=== PATIENT | male | born 1975 | race Hispanic/Latino ===

== ENCOUNTER 2017-06-29 02:40 | Inpatient (IN) | payer MEDICAID ==
--- NOTE | 2017-06-29 04:43 | PCM.BM ---
<David Leiva - Last Filed: 06/29/17 04:42> Treatment Plan Problems - Problems identified on initial assessmt Depression Date Initiated: 06/29/17 Time Initiated: 03:30 Assessment reference: NA Status: Active Suicidal Ideation Date Initiated: 06/29/17 Time Initiated: 03:30 Assessment reference: NA Status: Active Treatment assets and liabiliti Patient Assests: adapts well, cooperative, self-reliant, ADL independent, negotiates basic needs Patient Liabilities: live alone, financial problems, poor support system, relationship conflicts, dietary restrictions, medical problems - Milieu Protocol Maintain good personal hygiene: daily Encourage regular showers, daily Remind patient to perform daily oral care, daily Assist patient to perform ADL's Maintain personal safety: every shift Educate patient to report safety concerns to staff, every shift Monitor environment for contraband/sharps Medication safety: Monitor for expected outcome, potential side effects: every shift, Assess barriers to learning: every shift, Assess readiness for medication education: every shift <Walker Luevano - Last Filed: 06/29/17 23:52> - Diagnosis (1) Depression with suicidal ideation Status: Acute Interventions: 06/29/17 23:52 * Assess/adjust medications daily and /or as needed * See patient on an individual basis 7x/week to assess symptoms of depression * Monitor for side effects & effectiveness of medications *
--- NOTE | 2017-06-29 05:45 | C.PDOC ---
History Of Present Illness 41 year old male presents to the ER as a transfer from [facility] for psych admission for depression and suicidal ideation. Denies physical complaints at this time. Chief Complaint (Nursing): Psychiatric Evaluation History Per: Patient History/Exam Limitations: no limitations Onset/Duration Of Symptoms: Days Current Symptoms Are (Timing): Gone Suicide/Self Injury Attempted (Context): None Associated Symptoms: Depression, Suicidal Thoughts. denies: Suicidal Plan Involuntary Hold By: None Recent travel outside of the [place]: No Past Medical History Reviewed: Historical Data, Nursing Documentation, Vital Signs Vital Signs: Last Vital Signs Temp 98 F 06/29/17 02:50 Pulse 86 06/29/17 02:50 Resp 16 06/29/17 02:50 BP 152/72 H 06/29/17 02:50 Pulse Ox 98 06/29/17 05:47 - Medical History PMH: Depression, HTN Surgical History: Coronary Stent Family History: States: Unknown Family Hx - Social History Hx Alcohol Use: No Hx Substance Use: No - Immunization History Hx Tetanus Toxoid Vaccination: No Hx Influenza Vaccination: No Hx Pneumococcal Vaccination: No Review Of Systems Constitutional: Negative for: Fever, Chills Cardiovascular: Negative for: Chest Pain Respiratory: Negative for: Shortness of Breath Gastrointestinal: Negative for: Nausea, Vomiting, Abdominal Pain Physical Exam - Physical Exam Appears: Non-toxic, No Acute Distress Skin: Normal Color, Warm, Dry Head: Atraumatic, Normacephalic Eye(s): bilateral: Normal Inspection Oral Mucosa: Moist Neck: Normal, Supple Chest: Symmetrical, No Tenderness Cardiovascular: Rhythm Regular Respiratory: Normal Breath Sounds, No Rales, No Rhonchi, No Wheezing Gastrointestinal/Abdominal: Soft, No Tenderness Neurological/Psych: Oriented x3, Normal Speech ED Course And Treatment O2 Sat by Pulse Oximetry: 98 (room air) Pulse Ox Interpretation: Normal Progress Note: Patient cleared for admission. Disposition - Disposition Disposition: HOSPITALIZED Disposition Time: 02:50 Condition: STABLE - Clinical Impression Clinical Impression: Depression - Scribe Statement The provider has reviewed the documentation as recorded by the Scribshelly Newberry All medical record entries made by the Scribe were at my direction and personally dictated by me. I have reviewed the chart and agree that the record accurately reflects my personal performance of the history, physical exam, medical decision making, and the department course for this patient. I have also personally directed, reviewed, and agree with the discharge instructions and disposition.
--- NOTE | 2017-06-29 10:41 | PCM.PSYCH ---
Initial Psychiatric Evaluation - Initial Psychiatric Evaluation Type of Admission: Voluntary Legal Status: Capacity Chief Complaint (in patient's own words): "I am not comfortable at this hospital, I want to go to [facility]." History of Present Illness and Precipitating Events: Pt was seen, chart reviewed, case discussed with staff. Pt is a 41y/o male who is single with no children and lives with his uncle. He is here for depression and suicidal ideations. Pt is extremely agitated and irritable during the interview. He does not appear disheveled. Pt is cooperative. He is unemployed. Pt demands throughout the interview to be discharged today so he can go to [facility] where he states more comfortable. He states that he is not comfortable at [facility] and threatens to speak with administration if not discharged and get [employer] involved. He has a history of psychiatric hospitalization at [facility]. His psychiatrist at the hospital is Dr. Sosa. Pt has a history of Bipolar II, PTSD, and depression. He was recently hospitalized at [facility] couple of weeks ago for depression and suicidal ideations. He reports feelings of hopelessness and anxiety. He denies homicidal ideations, paranoia, auditory hallucinations, and visual hallucinations. Pt denies alcohol, illicit drug, and cigarette use. PMHX: CAD s/p Stent, DM 2, HTN Psychiatric HX: Bipolar 2, PTSD Current Medications: Active Medications Generic Name Dose Route Start Last Admin Trade Name Freq PRN Reason Stop Dose Admin Pneumococcal Polyvalent Vaccine 0.5 ml 07/01/17 10:30 Pneumovax 23 Vaccine IM 07/01/17 10:31 .ONCE ONE Past Psychiatric History - Past Psychiatric History Previous Treatment History: Inpatient Pertinent Medical Hx (Current Medical&Sleep Prob, Allergies): Allergies Allergy/AdvReac Type Severity Reaction Status Date / Time clarithromycin [From Biaxin] Allergy Verified 06/29/17 02:58 codeine Allergy Verified 06/29/17 02:58 sulfur dioxide Allergy Verified 06/29/17 02:58 Metoprolol Tartrate [Lopressor] 25 mg PO DAILY 06/29/17 Metoprolol Tartrate [Lopressor] 100 mg PO DAILY 06/29/17 Mirtazapine [Remeron] 30 mg PO DAILY 06/29/17 Quetiapine Fumarate [Quetiapine Fumarate ER] 200 mg PO DAILY 06/29/17 Tamsulosin HCl [Flomax] 0.4 mg PO DAILY 06/29/17 Trazodone HCl 100 mg PO DAILY 06/29/17 metFORMIN [glucOPHAGE] 850 mg PO DAILY 06/29/17 Review of Systems - Review of Systems All systems: reviewed and no additional remarkable complaints except - Psychiatric Psychiatric: Abnormal Sleep Pattern, Anxiety, Depression, Hopelessness, Irritability, Suicidal Ideation Mental Status Examination - Personal Presentation Personal Presentation: Looks stated age - Affect Affect: Broad, Depressed - Motor Activity Motor Activity: Psychomotor Agitation - Reliability in Providing Information Reliability in Providing Information: Good - Mood Mood: Depressed, Anxious - Formal Thought Process Formal Thought Process: No Impairment - Obsessions/Compulsions Obsessions: No Compulsions: No - Cognitive Functions Orientation: Person, Place, Situation, Time Sensorium: Alert Attention/Concentration: Attentive Abstract Thinking: Forest Estimate of Intelligence: Below average Judgement: Imparied, as evidence by: Poor judgement, Imparied, as evidence by: Lack of insight into illness - Risk Risk: Suicidal, Diminished functioning - Limitations Limitations: Living alone DSM 5 DX - DSM 5 DSM 5 Diagnosis: Bipolar II Major depressive disorder recurrent severe without psychotic features - Recommended/Plan of Treatment Treatment Recommendations and Plan of Treatment: Severe bipolar II depressed without psychotic features PTSD Chronic CBT Psychoeducation Supportive therapy, group therapy, individual therapy Neurontin 400 mg by mouth 3 times a day Trazodone 100 mg by mouth daily at bedtime Seroquel 100 mb PO Daily Seroquel 300 mg PO QHS Mirtazapine 45 mg pO QHS DM Continue prescribed meds Monitor with blood sugar HTN Continue prescribed meds Monitor with blood sugar CAD s/p Stent Continue prescribed meds Monitor with blood sugar - Smoking Cessation Smoking Cessation Initiated: No
[2017-06-29] MEDS ORDERED: diltiaZEM 120 mg/24 Hours CD Cap PO SCH (13:00)
--- NOTE | 2017-06-29 14:05 | CP.PCM.CON ---
<Austin Azul - Last Filed: 06/29/17 17:27> History of Present Illness - History of Present Illness History of Present Illness: CC: I don't feel well Mr Bonilla is a 41 year old male with a who is currently in the psychiatric unit for depression and suicidal ideation. He has a past medical history of DM (with insulin pump), HTN, CAD (with stent placement in 01/2017), urethral stricture. He stated [place] the [place] with [place] uncle yesterday and began having palpitations and became dizzy and uttered "I want to kill myself" which he states was overheard by a passerby who alerted security and ultimately he was taken to the [facility] ED. He wanted to be taken to [facility] psych unit (as he has had previous visits there) but [facility] didn't have any empty beds, thus he was brought to [facility] ER. He currently endorses palpitations, body aches, abdominal cramps and right ankle swelling. He denies chest pain, shortness of breath, focal deficits, dizziness, fever, diarrhea, nausea or vomiting. PMD: Dr Avila (sp?) in [place], [place] Cost Manager: Dr Kwon PMHx: DM, HTN, CAD, Urethral stricture (diagnosed 2016), Right ankle fracture 2012 PSHx: Coronary stent placement 01/2017, Right ankle fracture repair 2012 Allergies: Clarithromycin - rash; Codeine - dyspnea; Sulfure dioxide - dyspnea Home Meds: Insulin pump - closed loop system Lisinopril 40mg PO QD Plavix 75mg PO QD Lipitor 80mg PO QD Flomax 0.4mg PO BID Metoprolol tartrate 100mg PO BID Aspirin 81mg PO QD Metformin 1000 PO BID Pepcid 20mg PO BID Seroquel 100mg PO AM and Afternoon; Seroquel 200mg PO HS Rameron 45mg PO HS Gabapentin 400mg PO TID Trazadone 100mg PO HS Social Hx: denies tobacco use; social etoh use; denies illicit drug use; currently lives [place] with uncle; unemployed FamHx: Mother - at age 64 from cardiac isses, hx of AFib; Estranged from Father and Brother Review of Systems - Constitutional Constitutional: Fatigue, Weakness. absent: Night Sweats - EENT Eyes: absent: Change in Vision Ears: absent: Decreased Hearing Nose/Mouth/Throat: Nasal Congestion - Cardiovascular Cardiovascular: Claudication, Lightheadedness, Palpitations, Rapid Heart Rate. absent: Chest Pain, Diaphoresis, Edema - Respiratory Respiratory: absent: Cough, Dyspnea, Wheezing - Gastrointestinal Gastrointestinal: Bloating, Cramping. absent: Abdominal Pain - Genitourinary Genitourinary: Difficulty Urinating. absent: Dysuria - Musculoskeletal Musculoskeletal: Arthralgias - Integumentary Integumentary: absent: Bleeding Lesions - Neurological Neurological: Dizziness Past Patient History - Past Social History Smoking Status: Former Smoker - CARDIAC Hx Hypertension: Yes - PULMONARY Hx Respiratory Disorders: No - NEUROLOGICAL Hx Neurological Disorder: No - HEENT Hx HEENT Problems: No - RENAL Hx Chronic Kidney Disease: No - ENDOCRINE/METABOLIC Hx Endocrine Disorders: Yes Hx Diabetes Mellitus Type 1: Yes (insulin pump) - HEMATOLOGICAL/ONCOLOGICAL Hx Blood Disorders: No - INTEGUMENTARY Hx Dermatological Problems: No - MUSCULOSKELETAL/RHEUMATOLOGICAL Hx Musculoskeletal Disorders: No - GASTROINTESTINAL Hx Gastroesophageal Reflux: Yes - GENITOURINARY/GYNECOLOGICAL Hx Genitourinary Disorders: No - PSYCHIATRIC Hx Substance Use: No - SURGICAL HISTORY Hx Coronary Stent: Yes - ANESTHESIA Hx Anesthesia: Yes Hx Anesthesia Reactions: No Hx Malignant Hyperthermia: No Meds Allergies/Adverse Reactions: Allergies Allergy/AdvReac Type Severity Reaction Status Date / Time clarithromycin [From Biaxin] Allergy Verified 06/29/17 02:58 codeine Allergy Verified 06/29/17 02:58 sulfur dioxide Allergy Verified 06/29/17 02:58 - Medications Medications: Current Medications Diltiazem HCl (Cardizem Cd) 120 mg PO DAILY [facility] Last Admin: 06/29/17 13:01 Dose: 120 mg Famotidine (Pepcid) 20 mg PO DAILY [facility] Gabapentin (Neurontin) 400 mg PO TID [facility] Last Admin: 06/29/17 13:01 Dose: 400 mg Insulin Aspart (Novolog) 0 unit SC [facility] PRN Reason: Protocol Insulin Glargine (Lantus) 65 unit SC HS [facility] Lisinopril (Zestril) 40 mg PO DAILY [facility] Last Admin: 06/29/17 13:01 Dose: 40 mg Metformin HCl (Glucophage) 1,000 mg PO BID [facility] Metoprolol Tartrate (Lopressor) 100 mg PO BID [facility] Mirtazapine (Remeron) 45 mg PO HS [facility] Pneumococcal Polyvalent Vaccine (Pneumovax 23 Vaccine) 0.5 ml IM .ONCE ONE Stop: 07/01/17 10:31 Quetiapine Fumarate (Seroquel) 100 mg PO BID [facility] Quetiapine Fumarate (Seroquel) 200 mg PO HS [facility] Rosuvastatin Calcium (Crestor) 20 mg PO HS [facility] Tamsulosin HCl (Flomax) 0.4 mg PO DAILY [facility] Trazodone HCl (Desyrel) 100 mg PO HS [facility] Physical Exam - Constitutional Appears: Well, No Acute Distress, Older Than Stated Age - Head Exam Head Exam: ATRAUMATIC, NORMAL INSPECTION - Eye Exam Eye Exam: EOMI Pupil Exam: PERRL - ENT Exam ENT Exam: Mucous Membranes Moist - Neck Exam Neck exam: Positive for: Normal Inspection. Negative for: Lymphadenopathy, Tenderness - Respiratory Exam Respiratory Exam: Clear to Auscultation Bilateral, NORMAL BREATHING PATTERN. absent: Rales, Rhonchi, Wheezes - Cardiovascular Exam Cardiovascular Exam: Tachycardia, REGULAR RHYTHM, +S1, +S2. absent: Irregular Rhythm, JVD, Systolic Murmur - GI/Abdominal Exam GI & Abdominal Exam: Normal Bowel Sounds, Soft. absent: Distended, Firm, Guarding, Hernia, Mass, Rebound, Tenderness - Extremities Exam Extremities exam: Positive for: full ROM, normal capillary refill, pedal edema, pedal pulses present. Negative for: calf tenderness Additional comments: 1+ pedal edema bilaterally - Neurological Exam Neurological exam: Alert, Normal Gait, Oriented x3 - Psychiatric Exam Psychiatric exam: Anxious, Suicidal Ideation - Skin Skin Exam: Intact, Normal Color, Warm Results - Vital Signs Recent Vital Signs: Last Vital Signs Temp 98 F 06/29/17 02:50 Pulse 86 06/29/17 02:50 Resp 16 06/29/17 02:50 BP 152/72 H 06/29/17 02:50 Pulse Ox 98 06/29/17 06:18 - Labs Result Diagrams: 06/29/17 14:00 06/29/17 14:00 Labs: Laboratory Results - last 24 hr 06/29/17 06/29/17 06/29/17 02:48 08:03 12:00 POC Glucose (mg/dL) 95 99 161 H Assessment & Plan (1) Diabetes mellitus Assessment and Plan: Management Trainee consult, Dr Bree Whaley HgA1C 06/29: 10.0 F/U TSH, T4, fasting lipid panel Hypoglycemia protocol Meds: Continue insulin pump (patient's own) Metformin 1000mg PO BID Rosuvastatin 40mg PO HS Lisinopril 40mg PO QD Status: Chronic Priority: High (2) Hypertension Assessment and Plan: Metoprolol tartrate 100mg PO BID Lisinopril 40mg PO QD Status: Chronic Priority: High (3) CAD (coronary artery disease) Assessment and Plan: w/ stent placed in 01/2017 Will discuss with pt's foot orthopedist, Dr Kwon and obtain cardiac hx such as date and results of last ECHO Plavix 75mg PO QD Crestor 40mg PO HS Metoprolol 100mg PO BID Aspirin 81mg PO QD Status: Chronic Priority: High (4) Urethral stricture Assessment and Plan: Flomax 0.4mg PO BID Status: Chronic Priority: Medium (5) Abnormal RBC indices Assessment and Plan: F/U Iron, TIBC, % saturation, Ferritin Status: Acute Priority: Medium (6) Diabetic neuropathy Assessment and Plan: Gabapentin 400mg PO TID Status: Chronic Priority: Medium (7) GERD (gastroesophageal reflux disease) Assessment and Plan: Pepcid 20mg PO BID Status: Chronic Priority: Low (8) Depression with suicidal ideation Assessment and Plan: Management as per psychiatry team Status: Acute Priority: High <Charan White - Last Filed: 06/30/17 19:00> Meds - Medications Medications: Current Medications Acetaminophen (Tylenol 325mg Tab) 650 mg PO Q8H PRN PRN Reason: Pain, severe (8-10) Last Admin: 06/29/17 23:07 Dose: 650 mg Aspirin (Aspirin Chewable) 81 mg PO DAILY [facility] Last Admin: 06/30/17 09:59 Dose: 81 mg Benztropine Mesylate (Cogentin) 1 mg PO BID [facility] Last Admin: 06/30/17 17:33 Dose: 1 mg Benztropine Mesylate (Cogentin) 2 mg PO Q6 PRN PRN Reason: EPS Clopidogrel Bisulfate (Plavix) 75 mg PO DAILY [facility] Last Admin: 06/30/17 09:59 Dose: 75 mg Dextrose (Dextrose 50% Inj) 0 ml IV STAT PRN; Protocol PRN Reason: Hypoglycemia Protocol Dextrose (Glutose 15) 0 gm PO ONCE PRN; Protocol PRN Reason: Hypoglycemia Protocol Diltiazem HCl (Cardizem Cd) 120 mg PO DAILY [facility] Last Admin: 06/30/17 10:00 Dose: 120 mg Famotidine (Pepcid) 20 mg PO BID [facility] Last Admin: 06/30/17 17:33 Dose: 20 mg Ferrous Sulfate (Feosol) 325 mg PO BID [facility] Last Admin: 06/30/17 17:56 Dose: 325 mg Gabapentin (Neurontin) 400 mg PO TID [facility] Last Admin: 06/30/17 17:33 Dose: 400 mg Glucagon (Glucagen Diagnostic Kit) 0 mg IM STAT PRN; Protocol PRN Reason: Hypoglycemia Protocol Home Med (Home Med) 0 unit SC Q3D [facility] Last Admin: 06/30/17 10:04 Dose: 2 unit Dextrose (Dextrose 5% In Water 1000 Ml) 1,000 mls @ 0 mls/hr IV .Q0M PRN; Protocol; Per Protocol PRN Reason: Hypoglycemia Protocol Lisinopril (Zestril) 40 mg PO DAILY [facility] Last Admin: 06/30/17 10:03 Dose: 40 mg Magnesium Oxide (Mag-Ox) 400 mg PO TID [facility] Metformin HCl (Glucophage) 1,000 mg PO BID [facility] Last Admin: 06/30/17 17:33 Dose: 1,000 mg Metoprolol Tartrate (Lopressor) 100 mg PO BID [facility] Last Admin: 06/30/17 17:56 Dose: 100 mg Mirtazapine (Remeron) [address] [facility] Last Admin: 06/29/17 21:25 Dose: 45 mg Pneumococcal Polyvalent Vaccine (Pneumovax 23 Vaccine) 0.5 ml IM .ONCE ONE Stop: 07/01/17 10:31 Quetiapine Fumarate (Seroquel) 100 mg PO BID [facility] Last Admin: 06/30/17 17:33 Dose: 100 mg Quetiapine Fumarate (Seroquel) [address] [facility] Last Admin: 06/29/17 21:25 Dose: 200 mg Rosuvastatin Calcium (Crestor) [address] [facility] Last Admin: 06/29/17 21:25 Dose: 40 mg Tamsulosin HCl (Flomax) 0.4 mg PO BID [facility] Last Admin: 06/30/17 17:56 Dose: 0.4 mg Trazodone HCl (Desyrel) [address] [facility] Last Admin: 06/29/17 21:26 Dose: 100 mg Trolamine Salicylate (Aspercreme) 0 gm TOP QID [facility] Last Admin: 06/30/17 17:56 Dose: 85 gm Results - Vital Signs Recent Vital Signs: Last Vital Signs Temp 97.6 F 06/30/17 07:43 Pulse 74 06/30/17 07:43 Resp 20 06/30/17 07:43 BP 124/79 06/30/17 07:43 Pulse Ox 98 06/30/17 07:43 - Labs Result Diagrams: 06/30/17 11:21 06/30/17 11:21 Labs: Laboratory Results - last 24 hr 06/29/17 06/30/17 06/30/17 20:46 08:10 08:25 WBC RBC Hgb Hct MCV MCH MCHC RDW Plt Count MPV Neut % (Auto) Lymph % (Auto) Pender % (Auto) Eos % (Auto) Baso % (Auto) Neut # Lymph # Pender # Eos # Baso # Sodium Potassium Chloride Carbon Dioxide Anion Gap BUN Creatinine Est GFR ( Amer) Est GFR (Non-Af Amer) POC Glucose (mg/dL) 94 164 H Random Glucose Calcium Magnesium 1.1 L Iron TIBC % Saturation Ferritin 12.1 Total Bilirubin AST ALT Alkaline Phosphatase Total Protein Albumin Globulin Albumin/Globulin Ratio Triglycerides 164 H Cholesterol 136 LDL Cholesterol Direct 72 HDL Cholesterol 42 06/30/17 06/30/17 06/30/17 08:25 10:34 11:21 WBC 10.4 RBC 5.19 Hgb 13.5 Hct 41.2 MCV 79.3 L MCH 26.1 L MCHC 32.9 L RDW 15.5 H Plt Count 246 MPV 8.5 Neut % (Auto) 67.6 Lymph % (Auto) 23.6 Pender % (Auto) 6.5 Eos % (Auto) 2.0 Baso % (Auto) 0.3 Neut # 7.1 H Lymph # 2.5 Pender # 0.7 Eos # 0.2 Baso # 0.0 Sodium Potassium Chloride Carbon Dioxide Anion Gap BUN Creatinine Est GFR ( Amer) Est GFR (Non-Af Amer) POC Glucose (mg/dL) 295 H Random Glucose Calcium Magnesium Iron 24 L TIBC 358 % Saturation 7 L Ferritin Total Bilirubin AST ALT Alkaline Phosphatase Total Protein Albumin Globulin Albumin/Globulin Ratio Triglycerides Cholesterol LDL Cholesterol Direct HDL Cholesterol 06/30/17 06/30/17 06/30/17 11:21 11:30 16:55 WBC RBC Hgb Hct MCV MCH MCHC RDW Plt Count MPV Neut % (Auto) Lymph % (Auto) Pender % (Auto) Eos % (Auto) Baso % (Auto) Neut # Lymph # Pender # Eos # Baso # Sodium 135 Potassium 4.7 Chloride 96 L Carbon Dioxide 29 Anion Gap 15 BUN 40 H Creatinine 1.2 Est GFR ( Amer) > 60 Est GFR (Non-Af Amer) > 60 POC Glucose (mg/dL) 232 H 114 H Random Glucose 265 H Calcium 8.8 Magnesium Iron TIBC % Saturation Ferritin Total Bilirubin 0.4 AST 29 ALT 52 Alkaline Phosphatase 71 Total Protein 7.4 Albumin 4.1 Globulin 3.3 Albumin/Globulin Ratio 1.3 Triglycerides Cholesterol LDL Cholesterol Direct HDL Cholesterol Attending/Attestation - Attestation I have personally seen and examined this patient.: Yes I have fully participated in the care of the patient.: Yes I have reviewed all pertinent clinical information: Yes Notes (Text): 06/30/17 19:00 Patient was seen and examined shortly after resident on 06/29/17 History, Physical, Assessment and Plan were thoroughly gone over with the resident at that time. Charan White D.O.
[2017-06-29 14:06] LABS: BASO % 0.2 % (0.0-2.0); EOS # 0.2 K/uL (0.0-0.7); EOS % 1.8 % (0.0-4.0); HEMATOCRIT 42.9 % (35.0-51.0); LYMPH # 2.5 K/uL (1.0-4.3); LYMPH % 20.9 % (20.0-40.0); MEAN CELL VOLUME 79.5 fL (80.0-94.0); MEAN CORPUSCULAR HEMOGLOBIN 25.9 pg (27.0-31.0); MEAN CORPUSCULAR HGB CONC 32.6 g/dL (33.0-37.0); MEAN PLATELET VOLUME 8.7 fL (7.2-11.7); MONO # 0.7 K/uL (0.0-0.8); MONO % 5.4 % (0.0-10.0); RED CELL DISTRIBUTION WIDTH 15.6 % (11.5-14.5)
[2017-06-29 15:00] LABS: ALB/GLOB RATIO 1.2 (1.0-2.1); ALKALINE PHOSPHATASE 81 U/L (38-126); ALT/SGPT 50 U/L (21-72); AST/SGOT 39 U/L (17-59); BILIRUBIN,TOTAL 0.6 mg/dL (0.2-1.3); BLOOD UREA NITROGEN 25 mg/dL (9-20); CALCIUM 8.9 mg/dl (8.6-10.4); CARBON DIOXIDE 31 mmol/L (22-30); CHLORIDE 97 mmol/L (98-107); GFR AFRICAN-AMERICAN > 60; GLUCOSE,RANDOM 205 mg/dL (75-110); POTASSIUM 4.5 mmol/L (3.6-5.2); SODIUM 138 mmol/L (132-148); TOTAL PROTEIN 7.6 g/dL (6.3-8.3)
[2017-06-29] MEDS ORDERED: Dextrose 50% SYRINGE Inj (50 ml) IV PRN (16:11)
[2017-06-29] MEDS ORDERED: Glucagon Recombinant 1 mg Inj IM PRN (16:11)
[2017-06-29 16:16] LABS: THYROID STIMULATING HORMONE 2.24 mIU/L (0.46-4.68)
[2017-06-29] MEDS ORDERED: (Novolog) Insulin Aspart, Recombinant 100 u/ml 10 ml vial SC SCH (16:30)
[2017-06-29] MEDS ORDERED: (Lantus) Insulin Glargine, Recombinant SC SCH (22:00)
--- NOTE | 2017-06-30 01:37 | CON ---
ENDOCRINOLOGY CONSULTATION LOCATION: The patient in room #530, Psychiatry. HISTORY OF PRESENT ILLNESS: This is a 41-year-old male with known history of type 1 insulin-dependent diabetes, currently on Medtronic insulin pump and admitted to the Psychiatric Unit for further evaluation and management of major depression with suicidal ideations, and is now being referred for diabetic evaluation and management. PAST MEDICAL HISTORY: As mentioned above, history of type 1 insulin-dependent diabetes, currently on a Medtronic insulin pump and admits to recent glycemic fluctuations as noted thereof. History of hypertension and dyslipidemia, history of morbid obesity, also history of generalized anxiety and depression with underlying bipolar disorder and has had multiple admissions to the [facility] Unit for major depression and suicidal ideations as noted. History of coronary artery disease with a previous coronary stent placement. FAMILY HISTORY: Positive for diabetes and hypertension. SOCIAL HISTORY: The patient has a supportive family. No known substance use. REVIEW OF SYSTEMS: As mentioned above, admits to generalized body weakness with episodic bouts of dizziness and lightheadedness, worse on the day of admission. No chest pain, palpitations, or PND. His oral intake is variable with nausea, dyspepsia, and vague upper abdominal pain. Also, admits to episodic bouts of nocturia and polyuria as noted. PHYSICAL EXAMINATION: GENERAL: An overweight male, in no apparent distress. VITAL SIGNS: Blood pressure 140/80, pulse 70 beats per minute and regular, temperature 98, respirations 20, height is 5 feet 10 inches, and weight is 230 pounds. HEENT: Head is normocephalic. Eyes: Anicteric with pink conjunctivae. Funduscopy not possible at this time. Ears, nose, and throat otherwise normal. NECK: Supple. Thyroid gland is normal size. No carotid bruits or cervical adenopathy. CARDIOPULMONARY: Adynamic precordium. S1, S2 is rapid and regular. LUNGS: Clear to auscultation. ABDOMEN: Obese, soft with positive bowel sounds. EXTREMITIES: No peripheral edema. Pulses are +2 bilaterally. LABORATORY DATA: The chemistry showed a BUN of 25, sodium 138, potassium 4.5, chloride 97, CO2 of 31, glucose 205, and creatinine 1.0. His hemoglobin A1c is 10.0%, indicative of suboptimal metabolic control of his diabetic condition despite the use of the insulin pump. ASSESSMENT: This is a 41-year-old male with uncontrolled and decompensated type 1 insulin-dependent diabetes with major depression and suicidal ideations in the background of chronic schizoaffective disorder, now being admitted for closer psychiatric evaluation and management. PLAN OF MANAGEMENT: As discussed with the patient and staff, we will continue the fingerstick glucose testing four times a day, but we will discontinue all the coverage scale and the basal insulin as ordered. His Medtronic insulin pump is working and ongoing, and so we cannot have an overlap of basal insulin with the coverage scale when the patient is on the Medtronic insulin pump, which gives continuous 24-hour insulin as noted. Moreover, he has been trained and taught how to self-adjust his own basal and bolus insulin doses, especially to cover the mealtime insulin requirements. Plan of management, we will discuss with the nursing staff. We will discontinue the coverage scale and also the basal insulin of Lantus as ordered and allow the patient to self-adjust his own basal and bolus insulin dose regimen as given at home. His glucose levels today are actually near-optimal ranging from 99 to 161 mg/dL. The patient has been taught to cover the prandial insulin requirements with an extra bolus insulin dose from his pump and also to continue the basal insulin as indicated. We will obtain serial chemistries and supplement accordingly as needed. Bree Whaley MD
[2017-06-30 07:43] VITALS: RESP 20
--- NOTE | 2017-06-30 07:58 | CP.PCM.PN ---
<Austin Azul - Last Filed: 06/30/17 15:50> Subjective - Date & Time of Evaluation Date of Evaluation: 06/30/17 Time of Evaluation: 07:53 - Subjective Subjective: PGY-[address] White. No acute events overnight noted. Per nursing note: Slept well most of the night , No hypo/hyperglycemia noted. Patient was seen and examined today. He was less anxious today compared to yesterday. He says he feels much better after receiving his psychiatric medications. He denied any specific complaints. He denied chest pain, abdominal pain, fever, shortness of breath. Objective - Vital Signs/Intake and Output Vital Signs (last 24 hours): Temp Pulse Resp BP Pulse Ox 97.6 F 74 20 124/79 98 06/30/17 07:43 06/30/17 07:43 06/30/17 07:43 06/30/17 07:43 06/30/17 07:43 - Medications Medications: Current Medications Acetaminophen (Tylenol 325mg Tab) 650 mg PO Q8H PRN PRN Reason: Pain, severe (8-10) Last Admin: 06/29/17 23:07 Dose: 650 mg Aspirin (Aspirin Chewable) 81 mg PO DAILY COUNTS INCLUDE 234 BEDS AT THE [facility] Clopidogrel Bisulfate (Plavix) 75 mg PO DAILY COUNTS INCLUDE 234 BEDS AT THE [facility] Dextrose (Dextrose 50% Inj) 0 ml IV STAT PRN; Protocol PRN Reason: Hypoglycemia Protocol Dextrose (Glutose 15) 0 gm PO ONCE PRN; Protocol PRN Reason: Hypoglycemia Protocol Diltiazem HCl (Cardizem Cd) 120 mg PO DAILY COUNTS INCLUDE 234 BEDS AT THE [facility] Famotidine (Pepcid) 20 mg PO BID COUNTS INCLUDE 234 BEDS AT THE [facility] Last Admin: 06/29/17 18:10 Dose: Not Given Gabapentin (Neurontin) 400 mg PO TID COUNTS INCLUDE 234 BEDS AT THE [facility] Last Admin: 06/29/17 17:42 Dose: 400 mg Glucagon (Glucagen Diagnostic Kit) 0 mg IM STAT PRN; Protocol PRN Reason: Hypoglycemia Protocol Home Med (Home Med) 0 unit SC Q3D COUNTS INCLUDE 234 BEDS AT THE [facility] Dextrose (Dextrose 5% In Water 1000 Ml) 1,000 mls @ 0 mls/hr IV .Q0M PRN; Protocol; Per Protocol PRN Reason: Hypoglycemia Protocol Lisinopril (Zestril) 40 mg PO DAILY COUNTS INCLUDE 234 BEDS AT THE [facility] Last Admin: 06/29/17 13:01 Dose: 40 mg Metformin HCl (Glucophage) 1,000 mg PO BID COUNTS INCLUDE 234 BEDS AT THE [facility] Last Admin: 06/29/17 17:40 Dose: 1,000 mg Metoprolol Tartrate (Lopressor) 100 mg PO BID COUNTS INCLUDE 234 BEDS AT THE [facility] Last Admin: 06/29/17 17:45 Dose: 100 mg Mirtazapine (Remeron) 45 mg PO [facility] Last Admin: 06/29/17 21:25 Dose: 45 mg Pneumococcal Polyvalent Vaccine (Pneumovax 23 Vaccine) 0.5 ml IM .ONCE ONE Stop: 07/01/17 10:31 Quetiapine Fumarate (Seroquel) 100 mg PO BID COUNTS INCLUDE 234 BEDS AT THE [facility] Last Admin: 06/29/17 17:42 Dose: 100 mg Quetiapine Fumarate (Seroquel) 200 mg PO [facility] Last Admin: 06/29/17 21:25 Dose: 200 mg Rosuvastatin Calcium (Crestor) 40 mg PO [facility] Last Admin: 06/29/17 21:25 Dose: 40 mg Tamsulosin HCl (Flomax) 0.4 mg PO BID COUNTS INCLUDE 234 BEDS AT THE [facility] Last Admin: 06/29/17 18:31 Dose: 0.4 mg Trazodone HCl (Desyrel) 100 mg PO [facility] Last Admin: 06/29/17 21:26 Dose: 100 mg - Labs Labs: 06/29/17 14:00 06/29/17 14:00 - Additional Findings Additional findings: - Constitutional Appears: Well, No Acute Distress, Older Than Stated Age - Head Exam Head Exam: ATRAUMATIC, NORMAL INSPECTION - Eye Exam Eye Exam: EOMI Pupil Exam: PERRL - ENT Exam ENT Exam: Mucous Membranes Moist - Neck Exam Neck exam: Positive for: Normal Inspection. Negative for: Lymphadenopathy, Tenderness - Respiratory Exam Respiratory Exam: Clear to Auscultation Bilateral, NORMAL BREATHING PATTERN. absent: Rales, Rhonchi, Wheezes - Cardiovascular Exam Cardiovascular Exam: Tachycardia, REGULAR RHYTHM, +S1, +S2. absent: Irregular Rhythm, JVD, Systolic Murmur - GI/Abdominal Exam GI & Abdominal Exam: Normal Bowel Sounds, Soft. absent: Distended, Firm, Guarding, Hernia, Mass, Rebound, Tenderness Insulin pump in place in right abdominal area - Extremities Exam Extremities exam: Positive for: full ROM, normal capillary refill, pedal edema, pedal pulses present. Negative for: calf tenderness Additional comments: 1+ pedal edema bilaterally - Neurological Exam Neurological exam: Alert, Normal Gait, Oriented x3 - Psychiatric Exam Psychiatric exam: Anxious, Suicidal Ideation - Skin Skin Exam: Intact, Normal Color, Warm, Stasis dermatitis near ankles b/l Assessment and Plan (1) Diabetes mellitus Status: Chronic (2) Hypertension Status: Chronic (3) CAD (coronary artery disease) Status: Chronic (4) Urethral stricture Status: Chronic (5) Abnormal RBC indices Status: Acute (6) Diabetic neuropathy Status: Chronic (7) GERD (gastroesophageal reflux disease) Status: Chronic (8) Depression with suicidal ideation Status: Acute - Assessment and Plan (Free Text) Assessment: (1) Diabetes mellitus Assessment and Plan: Hinging Machine Operator consult, Dr Bree Whaley HgA1C 06/29: 10.0 TSH 2.24, Free T4 0.66 (L) Lipid panel WNL except Triglycerides slightly elevated at 164 Hypoglycemia protocol Meds: Continue insulin pump (patient's own) Metformin 1000mg PO BID Rosuvastatin 40mg PO HS Lisinopril 40mg PO QD Status: Chronic Priority: High (2) Hypertension Assessment and Plan: Metoprolol tartrate 100mg PO BID Lisinopril 40mg PO QD Status: Chronic Priority: High (3) CAD (coronary artery disease) Assessment and Plan: Cardiology consult, Dr Kwon (pt see's Dr Kwon outpatient) w/ stent placed in 01/2017 EKG reviewed, NSR Meds: Plavix 75mg PO QD Crestor 40mg PO HS Metoprolol 100mg PO BID Aspirin 81mg PO QD Diltiazem CD 120mg PO QD Status: Chronic Priority: High (4) Urethral stricture Assessment and Plan: Flomax 0.4mg PO BID Status: Chronic Priority: Medium (5) Abnormal RBC indices Assessment and Plan: Iron 24 (L), TIBC 358, % Saturation 7 (L), Ferritin 12.1 Status: Acute Priority: Medium (6) Diabetic neuropathy Assessment and Plan: Gabapentin 400mg PO TID Status: Chronic Priority: Medium (7) GERD (gastroesophageal reflux disease) Assessment and Plan: Pepcid 20mg PO BID (discontinued) Status: Chronic Priority: Low (8) Depression with suicidal ideation Assessment and Plan: Management as per psychiatry team Status: Acute Priority: High <Charan White - Last Filed: 06/30/17 19:06> Objective - Vital Signs/Intake and Output Vital Signs (last 24 hours): Temp Pulse Resp BP Pulse Ox 97.6 F 74 20 124/79 98 06/30/17 07:43 06/30/17 07:43 06/30/17 07:43 06/30/17 07:43 06/30/17 07:43 - Medications Medications: Current Medications Acetaminophen (Tylenol 325mg Tab) 650 mg PO Q8H PRN PRN Reason: Pain, severe (8-10) Last Admin: 06/29/17 23:07 Dose: 650 mg Aspirin (Aspirin Chewable) 81 mg PO DAILY COUNTS INCLUDE 234 BEDS AT [facility] Last Admin: 06/30/17 09:59 Dose: 81 mg Benztropine Mesylate (Cogentin) 1 mg PO BID COUNTS INCLUDE 234 BEDS AT THE [facility] Last Admin: 06/30/17 17:33 Dose: 1 mg Benztropine Mesylate (Cogentin) 2 mg PO Q6 PRN PRN Reason: EPS Clopidogrel Bisulfate (Plavix) 75 mg PO DAILY COUNTS INCLUDE 234 BEDS AT [facility] Last Admin: 06/30/17 09:59 Dose: 75 mg Dextrose (Dextrose 50% Inj) 0 ml IV STAT PRN; Protocol PRN Reason: Hypoglycemia Protocol Dextrose (Glutose 15) 0 gm PO ONCE PRN; Protocol PRN Reason: Hypoglycemia Protocol Diltiazem HCl (Cardizem Cd) 120 mg PO DAILY COUNTS INCLUDE 234 BEDS AT [facility] Last Admin: 06/30/17 10:00 Dose: 120 mg Famotidine (Pepcid) 20 mg PO BID COUNTS INCLUDE 234 BEDS AT [facility] Last Admin: 06/30/17 17:33 Dose: 20 mg Ferrous Sulfate (Feosol) 325 mg PO BID COUNTS INCLUDE 234 BEDS AT [facility] Last Admin: 06/30/17 17:56 Dose: 325 mg Gabapentin (Neurontin) 400 mg PO TID COUNTS INCLUDE 234 BEDS AT [facility] Last Admin: 06/30/17 17:33 Dose: 400 mg Glucagon (Glucagen Diagnostic Kit) 0 mg IM STAT PRN; Protocol PRN Reason: Hypoglycemia Protocol Home Med (Home Med) 0 unit SC Q3D COUNTS INCLUDE 234 BEDS AT [facility] Last Admin: 06/30/17 10:04 Dose: 2 unit Dextrose (Dextrose 5% In Water 1000 Ml) 1,000 mls @ 0 mls/hr IV .Q0M PRN; Protocol; Per Protocol PRN Reason: Hypoglycemia Protocol Lisinopril (Zestril) 40 mg PO DAILY COUNTS INCLUDE 234 BEDS AT [facility] Last Admin: 06/30/17 10:03 Dose: 40 mg Magnesium Oxide (Mag-Ox) 400 mg PO TID COUNTS INCLUDE 234 BEDS AT [facility] Metformin HCl (Glucophage) 1,000 mg PO BID COUNTS INCLUDE 234 BEDS AT [facility] Last Admin: 06/30/17 17:33 Dose: 1,000 mg Metoprolol Tartrate (Lopressor) 100 mg PO BID COUNTS INCLUDE 234 BEDS AT [facility] Last Admin: 06/30/17 17:56 Dose: 100 mg Mirtazapine (Remeron) 45 mg PO [facility] Last Admin: 06/29/17 21:25 Dose: 45 mg Pneumococcal Polyvalent Vaccine (Pneumovax 23 Vaccine) 0.5 ml IM .ONCE ONE Stop: 07/01/17 10:31 Quetiapine Fumarate (Seroquel) 100 mg PO BID COUNTS INCLUDE 234 BEDS AT [facility] Last Admin: 06/30/17 17:33 Dose: 100 mg Quetiapine Fumarate (Seroquel) 200 mg PO [facility] Last Admin: 06/29/17 21:25 Dose: 200 mg Rosuvastatin Calcium (Crestor) 40 mg PO [facility] Last Admin: 06/29/17 21:25 Dose: 40 mg Tamsulosin HCl (Flomax) 0.4 mg PO BID COUNTS INCLUDE 234 BEDS AT [facility] Last Admin: 06/30/17 17:56 Dose: 0.4 mg Trazodone HCl (Desyrel) 100 mg PO [facility] Last Admin: 06/29/17 21:26 Dose: 100 mg Trolamine Salicylate (Aspercreme) 0 gm TOP QID COUNTS INCLUDE 234 BEDS AT THE [facility] Last Admin: 06/30/17 17:56 Dose: 85 gm - Labs Labs: 06/30/17 11:21 06/30/17 11:21 Attending/Attestation - Attestation I have personally seen and examined this patient.: Yes I have fully participated in the care of the patient.: Yes I have reviewed all pertinent clinical information, including history, physical exam and plan: Yes Notes (Text): 06/30/17 19:03 Patient was seen and examined at 4:15 PM 06/30/17 530 B. Exam, Assessment and Plan were thoroughly gone over with the resident. EKG 06/29/17 showed NSR at 81 bpm Patient's Iron studies indicated Low Iron therefore started on Ferrous Sulfate 325 mg PO 2x/day Complained of Right Ankle Pain due to history of ankle fracture in the past. Normal gait was noted. Aspercream 4x/day ordered. Charan White D.O.
[2017-06-30 08:57] LABS: IRON 24 ug/dL (49-181); MAGNESIUM 1.1 mg/dL (1.6-2.3)
[2017-06-30] MEDS ORDERED: HUMALOG INSULIN PUMP SC SCH (10:00)
[2017-06-30] MEDS: diltiaZEM 120 mg/24 Hours CD Cap PO SCH (10:00)
--- NOTE | 2017-06-30 10:55 | PCM.PYCHPN ---
Psychiatric Progress Note - Psychiatric Progress Note Patient seen today, length of contact: 15 min Patient Chief Complaint: "I am not comfortable at this hospital, I want to go to [facility]." Problems Identified/Issues Discussed: Patient seen and evaluated, chart reviewed and discussed with the nurse. Patient reports improvement in his mood and reports improvement in the feelings of hopelessness and helplessness. He reports improvement in the sleep and appetite. Patient is compliant with medications and denies any side effects. Symptoms are improving but need more time to stabilize. Support and psychoeducation given. Medication Change: No Medical Record Reviewed: Yes Mental Status Examination - Cognitive Function Orientation: Person, Place, Situation, Time Memory: Intact Attention: WNL Concentration: Poor Association: WNL Fund of Knowledge: Poor - Mood Mood: Anxious - Affect Affect: Broad, Depressed - Speech Speech: Soft - Formal Thought Process Formal Thought Process: No Impairment - Suicidal Ideation Suicidal Ideation: No - Homicidal Ideation Homicidal Ideation: No Goal/Treatment Plan - Goal/Treatment Plan Need for Continued Stay: Severe depression anxiety, Severe functional impairment Progress Toward Problem(s) and Goals/Treatment Plan: Severe bipolar II depressed without psychotic features PTSD Chronic CBT Psychoeducation Supportive therapy, group therapy, individual therapy Neurontin 400 mg by mouth 3 times a day Trazodone 100 mg by mouth daily at bedtime Seroquel 100 mb PO Daily Seroquel 300 mg PO QHS Mirtazapine 45 mg pO QHS DM Continue prescribed meds Monitor with blood sugar HTN Continue prescribed meds Monitor with blood sugar CAD s/p Stent Continue prescribed meds Monitor with blood sugar - Smoking Cessation Smoking Cessation Initiated: No
[2017-06-30 11:33] LABS: BASO % 0.3 % (0.0-2.0); EOS # 0.2 K/uL (0.0-0.7); HEMATOCRIT 41.2 % (35.0-51.0); LYMPH # 2.5 K/uL (1.0-4.3); LYMPH % 23.6 % (20.0-40.0); MEAN CELL VOLUME 79.3 fL (80.0-94.0); MEAN CORPUSCULAR HEMOGLOBIN 26.1 pg (27.0-31.0); MEAN CORPUSCULAR HGB CONC 32.9 g/dL (33.0-37.0); MEAN PLATELET VOLUME 8.5 fL (7.2-11.7); MONO # 0.7 K/uL (0.0-0.8); MONO % 6.5 % (0.0-10.0); NRBC % 0.1 % (0.0-2.0); RED CELL DISTRIBUTION WIDTH 15.5 % (11.5-14.5); WHITE BLOOD COUNT 10.4 K/uL (4.8-10.8)
[2017-06-30 11:51] LABS: ALB/GLOB RATIO 1.3 (1.0-2.1); ALKALINE PHOSPHATASE 71 U/L (38-126); ALT/SGPT 52 U/L (21-72); AST/SGOT 29 U/L (17-59); BILIRUBIN,TOTAL 0.4 mg/dL (0.2-1.3); BLOOD UREA NITROGEN 40 mg/dL (9-20); CALCIUM 8.8 mg/dl (8.6-10.4); CARBON DIOXIDE 29 mmol/L (22-30); CHLORIDE 96 mmol/L (98-107); GFR AFRICAN-AMERICAN > 60; GLUCOSE,RANDOM 265 mg/dL (75-110); POTASSIUM 4.7 mmol/L (3.6-5.2); SODIUM 135 mmol/L (132-148); TOTAL PROTEIN 7.4 g/dL (6.3-8.3)
--- NOTE | 2017-06-30 12:24 | CARD ---
APPROVED REPORT EKG Measurement Heart [id number] <Conclusion> Normal sinus rhythm Normal ECG
[2017-06-30] MEDS ORDERED: Magnesium Citrate Oral SOL (300 ml) PO ONE (13:21)
--- NOTE | 2017-06-30 17:48 | PN ---
DATE: ENDOCRINOLOGY FOLLOWUP NOTE LOCATION: In the room #530, Psychiatry. SUMMARY: This is a 41-year-old male with recent uncontrolled type 1 insulin-dependent diabetes, presenting here with major depression and suicidal ideations, and is now being followed closely for metabolic management. His glycemic levels are fluctuating in the range from 232 to 295 mg/dL. The latest chemistry showed a BUN of 40, sodium 135, potassium 4.7, chloride 96, CO2 of 29, glucose 265 and creatinine 1.2. His hemoglobin A1c was actually initial reported 10.0. So at this time, we will continue the glucose monitoring levels undertaken 4 times a day a.c. and at bedtime as ordered. The patient has been allowed to self adjust his own basal and bolus insulin regimen using Medtr[employer] insulin pump as noted. We will obtain serial chemistries and supplement accordingly as needed. We will follow. Bree Whaley MD
[2017-06-30] MEDS: Trolamine Salicylate 10% Cream (85 gm) TOP SCH ×2 (17:56→22:19)
--- NOTE | 2017-06-30 18:22 | CP.PCM.CON ---
History of Present Illness - History of Present Illness History of Present Illness: The pt is a 41 year old man with with CAD, a coronary stent performed in [facility] january 2017, who was admitted for suicidal ideation. Pt was just released from [facility]. He was brought to [facility], and transferred here at [facility] for observation. He has IDDM and an insulin pump. the other day at home, he had 20 minutes of a fast heart beat, and throat tightness: he took his pulse and it was 160 bpm. In the [facility], "all was normal". Review of Systems - Review of Systems All systems: reviewed and no additional remarkable complaints except (as above) Past Patient History - Past Social History Smoking Status: Former Smoker - CARDIAC Hx Hypertension: Yes - PULMONARY Hx Respiratory Disorders: No - NEUROLOGICAL Hx Neurological Disorder: No - HEENT Hx HEENT Problems: No - RENAL Hx Chronic Kidney Disease: No - ENDOCRINE/METABOLIC Hx Endocrine Disorders: Yes Hx Diabetes Mellitus Type 1: Yes (insulin pump) - HEMATOLOGICAL/ONCOLOGICAL Hx Blood Disorders: No - INTEGUMENTARY Hx Dermatological Problems: No - MUSCULOSKELETAL/RHEUMATOLOGICAL Hx Musculoskeletal Disorders: No - GASTROINTESTINAL Hx Gastroesophageal Reflux: Yes - GENITOURINARY/GYNECOLOGICAL Hx Genitourinary Disorders: No - PSYCHIATRIC Hx Substance Use: No - SURGICAL HISTORY Hx Coronary Stent: Yes - ANESTHESIA Hx Anesthesia: Yes Hx Anesthesia Reactions: No Hx Malignant Hyperthermia: No Meds Allergies/Adverse Reactions: Allergies Allergy/AdvReac Type Severity Reaction Status Date / Time clarithromycin [From Biaxin] Allergy Verified 06/29/17 02:58 codeine Allergy Verified 06/29/17 02:58 sulfur dioxide Allergy Verified 06/29/17 02:58 - Medications Medications: Current Medications Acetaminophen (Tylenol 325mg Tab) 650 mg PO Q8H PRN PRN Reason: Pain, severe (8-10) Last Admin: 06/29/17 23:07 Dose: 650 mg Aspirin (Aspirin Chewable) 81 mg PO DAILY [facility] Last Admin: 06/30/17 09:59 Dose: 81 mg Benztropine Mesylate (Cogentin) 1 mg PO BID [facility] Last Admin: 06/30/17 17:33 Dose: 1 mg Benztropine Mesylate (Cogentin) 2 mg PO Q6 PRN PRN Reason: EPS Clopidogrel Bisulfate (Plavix) 75 mg PO DAILY [facility] Last Admin: 06/30/17 09:59 Dose: 75 mg Dextrose (Dextrose 50% Inj) 0 ml IV STAT PRN; Protocol PRN Reason: Hypoglycemia Protocol Dextrose (Glutose 15) 0 gm PO ONCE PRN; Protocol PRN Reason: Hypoglycemia Protocol Diltiazem HCl (Cardizem Cd) 120 mg PO DAILY [facility] Last Admin: 06/30/17 10:00 Dose: 120 mg Famotidine (Pepcid) 20 mg PO BID [facility] Last Admin: 06/30/17 17:33 Dose: 20 mg Ferrous Sulfate (Feosol) 325 mg PO BID [facility] Last Admin: 06/30/17 17:56 Dose: 325 mg Gabapentin (Neurontin) 400 mg PO TID [facility] Last Admin: 06/30/17 17:33 Dose: 400 mg Glucagon (Glucagen Diagnostic Kit) 0 mg IM STAT PRN; Protocol PRN Reason: Hypoglycemia Protocol Home Med (Home Med) 0 unit SC Q3D [facility] Last Admin: 06/30/17 10:04 Dose: 2 unit Dextrose (Dextrose 5% In Water 1000 Ml) 1,000 mls @ 0 mls/hr IV .Q0M PRN; Protocol; Per Protocol PRN Reason: Hypoglycemia Protocol Lisinopril (Zestril) 40 mg PO DAILY [facility] Last Admin: 06/30/17 10:03 Dose: 40 mg Metformin HCl (Glucophage) 1,000 mg PO BID [facility] Last Admin: 06/30/17 17:33 Dose: 1,000 mg Metoprolol Tartrate (Lopressor) 100 mg PO BID [facility] Last Admin: 06/30/17 17:56 Dose: 100 mg Mirtazapine (Remeron) 45 mg PO [facility] Last Admin: 06/29/17 21:25 Dose: 45 mg Pneumococcal Polyvalent Vaccine (Pneumovax 23 Vaccine) 0.5 ml IM .ONCE ONE Stop: 07/01/17 10:31 Quetiapine Fumarate (Seroquel) 100 mg PO BID [facility] Last Admin: 06/30/17 17:33 Dose: 100 mg Quetiapine Fumarate (Seroquel) 200 mg PO [facility] Last Admin: 06/29/17 21:25 Dose: 200 mg Rosuvastatin Calcium (Crestor) 40 mg PO [facility] Last Admin: 06/29/17 21:25 Dose: 40 mg Tamsulosin HCl (Flomax) 0.4 mg PO BID [facility] Last Admin: 06/30/17 17:56 Dose: 0.4 mg Trazodone HCl (Desyrel) 100 mg PO HS [facility] Last Admin: 06/29/17 21:26 Dose: 100 mg Trolamine Salicylate (Aspercreme) 0 gm TOP QID [facility] Last Admin: 06/30/17 17:56 Dose: 85 gm Physical Exam - Constitutional Appears: Well - Head Exam Head Exam: ATRAUMATIC - Eye Exam Eye Exam: EOMI - ENT Exam ENT Exam: Mucous Membranes Moist - Cardiovascular Exam Cardiovascular Exam: REGULAR RHYTHM - GI/Abdominal Exam GI & Abdominal Exam: Normal Bowel Sounds - Exam External exam: NORMAL EXTERNAL EXAM - Extremities Exam Extremities exam: Positive for: normal inspection - Back Exam Back exam: NORMAL INSPECTION - Psychiatric Exam Psychiatric exam: Anxious, Depressed - Skin Skin Exam: Normal Color Results - Vital Signs Recent Vital Signs: Last Vital Signs Temp 97.6 F 06/30/17 07:43 Pulse 74 06/30/17 07:43 Resp 20 06/30/17 07:43 BP 124/79 06/30/17 07:43 Pulse Ox 98 06/30/17 07:43 - Labs Result Diagrams: 06/30/17 11:21 06/30/17 11:21 Labs: Laboratory Results - last 24 hr 06/29/17 06/30/17 06/30/17 20:46 08:10 08:25 WBC RBC Hgb Hct MCV MCH MCHC RDW Plt Count MPV Neut % (Auto) Lymph % (Auto) Swisher % (Auto) Eos % (Auto) Baso % (Auto) Neut # Lymph # Swisher # Eos # Baso # Sodium Potassium Chloride Carbon Dioxide Anion Gap BUN Creatinine Est GFR ( Amer) Est GFR (Non-Af Amer) POC Glucose (mg/dL) 94 164 H Random Glucose Calcium Magnesium 1.1 L Iron TIBC % Saturation Ferritin 12.1 Total Bilirubin AST ALT Alkaline Phosphatase Total Protein Albumin Globulin Albumin/Globulin Ratio Triglycerides 164 H Cholesterol 136 LDL Cholesterol Direct 72 HDL Cholesterol 42 06/30/17 06/30/17 06/30/17 08:25 10:34 11:21 WBC 10.4 RBC 5.19 Hgb 13.5 Hct 41.2 MCV 79.3 L MCH 26.1 L MCHC 32.9 L RDW 15.5 H Plt Count 246 MPV 8.5 Neut % (Auto) 67.6 Lymph % (Auto) 23.6 Swisher % (Auto) 6.5 Eos % (Auto) 2.0 Baso % (Auto) 0.3 Neut # 7.1 H Lymph # 2.5 Swisher # 0.7 Eos # 0.2 Baso # 0.0 Sodium Potassium Chloride Carbon Dioxide Anion Gap BUN Creatinine Est GFR ( Amer) Est GFR (Non-Af Amer) POC Glucose (mg/dL) 295 H Random Glucose Calcium Magnesium Iron 24 L TIBC 358 % Saturation 7 L Ferritin Total Bilirubin AST ALT Alkaline Phosphatase Total Protein Albumin Globulin Albumin/Globulin Ratio Triglycerides Cholesterol LDL Cholesterol Direct HDL Cholesterol 06/30/17 06/30/17 06/30/17 11:21 11:30 16:55 WBC RBC Hgb Hct MCV MCH MCHC RDW Plt Count MPV Neut % (Auto) Lymph % (Auto) Swisher % (Auto) Eos % (Auto) Baso % (Auto) Neut # Lymph # Swisher # Eos # Baso # Sodium 135 Potassium 4.7 Chloride 96 L Carbon Dioxide 29 Anion Gap 15 BUN 40 H Creatinine 1.2 Est GFR ( Amer) > 60 Est GFR (Non-Af Amer) > 60 POC Glucose (mg/dL) 232 H 114 H Random Glucose 265 H Calcium 8.8 Magnesium Iron TIBC % Saturation Ferritin Total Bilirubin 0.4 AST 29 ALT 52 Alkaline Phosphatase 71 Total Protein 7.4 Albumin 4.1 Globulin 3.3 Albumin/Globulin Ratio 1.3 Triglycerides Cholesterol LDL Cholesterol Direct HDL Cholesterol - EKG Data EKG Interpreted by: Myself EKG shows normal: Sinus rhythm Rate: Normal (normal) Assessment & Plan - Assessment and Plan (Free Text) Assessment: 1. ECG is normal: unclear if recent fast heart beat was an arrhythmia or due to anxiety. Pt had a colonoscopy after his coronary PCI, and the nurse told him he had a 12 beat of Vtach in recovery. The patient is leaving inpatient [place] tomorrow and an event monitor will be ordered. 2. No chest pain currently or evidence of ACS. Pt will follow up with Dr Kwon. 3. Will replace magnesium po. Pt has a chronic problem with this. Possible diet related.
--- NOTE | 2017-07-01 06:22 | CP.PCM.PN ---
Subjective - Date & Time of Evaluation Date of Evaluation: 07/01/17 Time of Evaluation: 06:20 - Subjective Subjective: PGY-[address] White's service: Pt seen and examined at bedside. Nursing reports no acute events overnight. Objective - Vital Signs/Intake and Output Vital Signs (last 24 hours): Temp Pulse Resp BP Pulse Ox 97.6 F 74 20 124/79 98 06/30/17 07:43 06/30/17 07:43 06/30/17 07:43 06/30/17 07:43 06/30/17 07:43 - Medications Medications: Current Medications Acetaminophen (Tylenol 325mg Tab) 650 mg PO Q8H PRN PRN Reason: Pain, severe (8-10) Last Admin: 06/30/17 22:20 Dose: 650 mg Aspirin (Aspirin Chewable) 81 mg PO DAILY [facility] Last Admin: 06/30/17 09:59 Dose: 81 mg Benztropine Mesylate (Cogentin) 1 mg PO BID [facility] Last Admin: 06/30/17 17:33 Dose: 1 mg Benztropine Mesylate (Cogentin) 2 mg PO Q6 PRN PRN Reason: EPS Clopidogrel Bisulfate (Plavix) 75 mg PO DAILY [facility] Last Admin: 06/30/17 09:59 Dose: 75 mg Dextrose (Dextrose 50% Inj) 0 ml IV STAT PRN; Protocol PRN Reason: Hypoglycemia Protocol Dextrose (Glutose 15) 0 gm PO ONCE PRN; Protocol PRN Reason: Hypoglycemia Protocol Diltiazem HCl (Cardizem Cd) 120 mg PO DAILY [facility] Last Admin: 06/30/17 10:00 Dose: 120 mg Famotidine (Pepcid) 20 mg PO BID [facility] Last Admin: 06/30/17 17:33 Dose: 20 mg Ferrous Sulfate (Feosol) 325 mg PO BID [facility] Last Admin: 06/30/17 17:56 Dose: 325 mg Gabapentin (Neurontin) 400 mg PO TID [facility] Last Admin: 06/30/17 17:33 Dose: 400 mg Glucagon (Glucagen Diagnostic Kit) 0 mg IM STAT PRN; Protocol PRN Reason: Hypoglycemia Protocol Home Med (Home Med) 0 unit SC Q3D [facility] Last Admin: 06/30/17 10:04 Dose: 2 unit Hydroxyzine HCl (Atarax) 50 mg PO Q6 PRN PRN Reason: Anxiety Last Admin: 06/30/17 22:05 Dose: 50 mg Dextrose (Dextrose 5% In Water 1000 Ml) 1,000 mls @ 0 mls/hr IV .Q0M PRN; Protocol; Per Protocol PRN Reason: Hypoglycemia Protocol Lisinopril (Zestril) 40 mg PO DAILY [facility] Last Admin: 06/30/17 10:03 Dose: 40 mg Magnesium Oxide (Mag-Ox) 400 mg PO TID [facility] Metformin HCl (Glucophage) 1,000 mg PO BID [facility] Last Admin: 06/30/17 17:33 Dose: 1,000 mg Metoprolol Tartrate (Lopressor) 100 mg PO BID [facility] Last Admin: 06/30/17 17:56 Dose: 100 mg Mirtazapine (Remeron) 45 mg PO HS [facility] Last Admin: 06/30/17 22:05 Dose: 45 mg Pneumococcal Polyvalent Vaccine (Pneumovax 23 Vaccine) 0.5 ml IM .ONCE ONE Stop: 07/01/17 10:31 Quetiapine Fumarate (Seroquel) 100 mg PO BID [facility] Last Admin: 06/30/17 17:33 Dose: 100 mg Quetiapine Fumarate (Seroquel) 200 mg PO HS [facility] Last Admin: 06/30/17 22:05 Dose: 200 mg Rosuvastatin Calcium (Crestor) 40 mg PO HS [facility] Last Admin: 06/30/17 22:05 Dose: 40 mg Tamsulosin HCl (Flomax) 0.4 mg PO BID [facility] Last Admin: 06/30/17 17:56 Dose: 0.4 mg Trazodone HCl (Desyrel) 100 mg PO [facility] Last Admin: 06/30/17 22:06 Dose: 100 mg Trolamine Salicylate (Aspercreme) 0 gm TOP QID [facility] Last Admin: 06/30/17 22:19 Dose: 85 gm - Labs Labs: 06/30/17 11:21 06/30/17 11:21 Assessment and Plan - Assessment and Plan (Free Text) Plan: Diabetes mellitus Assessment and Plan: P[employer] Instrument [employer]er consult, Dr Bree Whaley HgA1C 06/29: 10.0 TSH 2.24, Free T4 0.66 (L) Lipid panel WNL except Triglycerides slightly elevated at 164 Hypoglycemia protocol Meds: Continue insulin pump (patient's own) Metformin 1000mg PO BID Rosuvastatin 40mg PO HS Lisinopril 40mg PO QD Status: Chronic Priority: High Hypertension Assessment and Plan: Elevated on Day of Admission, but now well-controlled Metoprolol tartrate 100mg PO BID Lisinopril 40mg PO QD Status: Chronic Priority: High CAD (coronary artery disease) Assessment and Plan: Cardiology consult, Dr Kwon (pt see's Dr Kwon outpatient) Dr. Veloz (covering Dr. Kwon) recommendations: - EKG normal: unclear if tachycardia due to arrythmia or anxiety. - No chest pain/ACS. Pt to follow OPDX with Dr. Kwon History of stent placement in 01/2017 EKG reviewed, NSR Meds: Plavix 75mg PO QD Crestor 40mg PO HS Metoprolol 100mg PO BID Aspirin 81mg PO QD Diltiazem CD 120mg PO QD Status: Chronic Priority: High Urethral stricture Assessment and Plan: Flomax 0.4mg PO BID Status: Chronic Priority: Medium Abnormal RBC indices Assessment and Plan: Iron 24 (L), TIBC 358, % Saturation 7 (L), Ferritin 12.1 Status: Acute Priority: Medium Diabetic neuropathy Assessment and Plan: Gabapentin 400mg PO TID Status: Chronic Priority: Medium GERD (gastroesophageal reflux disease) Assessment and Plan: Pepcid 20mg PO BID (discontinued) Status: Chronic Priority: Low Depression with suicidal ideation Assessment and Plan: Management as per psychiatry team Status: Acute Priority: High Electrolyte abnormalities Hypomagnesemia (1.1) - repleted PO -f/u AM level Carson Montes PGY-2 Discussed with attending, Dr. White
[2017-07-01] MEDS: diltiaZEM 120 mg/24 Hours CD Cap PO SCH (09:15)
[2017-07-01] MEDS: Trolamine Salicylate 10% Cream (85 gm) TOP SCH (09:30)
[2017-07-01] MEDS ORDERED: Influenza Vaccine 60 mcg/0.5 mL SYR (4YR UP) IM ONE (10:00)
[2017-07-01] MEDS ORDERED: Magnesium Oxide 400 mg Tab UD PO SCH (10:00)
--- NOTE | 2017-07-01 10:12 | PCM.PYCHDC ---
Mental Status Examination - Mental Status Examination Orientation: Person, Place, Situation, Time Memory: Intact Mood: Neutral Affect: Constricted Speech: Soft Attention: WNL Concentration: WNL Association: WNL Fund of Knowledge: WNL Formal Thought Process: No Impairment Description of patient's judgement and insight: good, fair Psychotic Thoughts and Behaviors: denies any AVH Suicidal Ideation: No Current Homicidal Ideation?: No Discharge Summary - Discharge Note Reason for Hospitalization: Pt was seen, chart reviewed, case discussed with staff. Pt is a 41y/o male who is single with no children and lives with his uncle. He is here for depression and suicidal ideations. Pt is extremely agitated and irritable during the interview. He does not appear disheveled. Pt is cooperative. He is unemployed. Pt demands throughout the interview to be discharged today so he can go to [facility] where he states more comfortable. He states that he is not comfortable at [facility] and threatens to speak with administration if not discharged and get [employer] involved. He has a history of psychiatric hospitalization at . His psychiatrist at the hospital is Dr. Sosa. Pt has a history of Bipolar II, PTSD, and depression. He was recently hospitalized at [facility] couple of weeks ago for depression and suicidal ideations. He reports feelings of hopelessness and anxiety. He denies homicidal ideations, paranoia, auditory hallucinations, and visual hallucinations. Pt denies alcohol, illicit drug, and cigarette use. Laboratory Data: Abnormal Lab Results 06/30/17 06/30/17 06/30/17 10:34 11:21 11:21 WBC 10.4 RBC 5.19 Hgb 13.5 Hct 41.2 MCV 79.3 L MCH 26.1 L MCHC 32.9 L RDW 15.5 H Plt Count 246 MPV 8.5 Neut % (Auto) 67.6 Lymph % (Auto) 23.6 Reeves % (Auto) 6.5 Eos % (Auto) 2.0 Baso % (Auto) 0.3 Neut # 7.1 H Lymph # 2.5 Reeves # 0.7 Eos # 0.2 Baso # 0.0 Sodium 135 Potassium 4.7 Chloride 96 L Carbon Dioxide 29 Anion Gap 15 BUN 40 H Creatinine 1.2 Est GFR ( Amer) > 60 Est GFR (Non-Af Amer) > 60 POC Glucose (mg/dL) 295 H Random Glucose 265 H Calcium 8.8 Total Bilirubin 0.4 AST 29 ALT 52 Alkaline Phosphatase 71 Total Protein 7.4 Albumin 4.1 Globulin 3.3 Albumin/Globulin Ratio 1.3 06/30/17 06/30/17 06/30/17 11:30 16:55 20:09 WBC RBC Hgb Hct MCV MCH MCHC RDW Plt Count MPV Neut % (Auto) Lymph % (Auto) Reeves % (Auto) Eos % (Auto) Baso % (Auto) Neut # Lymph # Reeves # Eos # Baso # Sodium Potassium Chloride Carbon Dioxide Anion Gap BUN Creatinine Est GFR ( Amer) Est GFR (Non-Af Amer) POC Glucose (mg/dL) 232 H 114 H 83 Random Glucose Calcium Total Bilirubin AST ALT Alkaline Phosphatase Total Protein Albumin Globulin Albumin/Globulin Ratio 07/01/17 07/01/17 07:23 08:16 WBC RBC Hgb Hct MCV MCH MCHC RDW Plt Count MPV Neut % (Auto) Lymph % (Auto) Reeves % (Auto) Eos % (Auto) Baso % (Auto) Neut # Lymph # Reeves # Eos # Baso # Sodium Potassium Chloride Carbon Dioxide Anion Gap BUN Creatinine Est GFR ( Amer) Est GFR (Non-Af Amer) POC Glucose (mg/dL) 216 H 196 H Random Glucose Calcium Total Bilirubin AST ALT Alkaline Phosphatase Total Protein Albumin Globulin Albumin/Globulin Ratio Consultations:: List each consultation separately and include: 1. Reason for request. 2. Findings. 3. Follow-up Summary of Hospital Course include:: 1. Description of specific treatment plan utilized for patients during their course of treatmen. 2. Summarize the time- course for resolution of acute symptoms and/or regressed behaviors. 3. Describe issues identified and worked on during hospitalization. 4. Describe medication utilized. 5. Describe medical problems identified and treated. 6. Reassessment of suicide risk Summary of Hospital Course: During the course of his stay, patient (pt) started progressively improving and he no longer remained irritable, depressed, and suicidal. His mood and anxiety symptoms were improved and he started attending groups and meetings and started socializing. Patient denied any feelings of hopelessness, helplessness, and worthlessness, denied any problem with the sleep or appetite, denied suicidal ideation or homicidal ideation. Pt denied any auditory or visual hallucinations. Some changes were made in his current medications and patient was discharged on following medications. He tolerated these medications very well and denied any side effects. Pt is to follow-up with [facility] for outpatient treatment. SW arranged transportation via [employer]. - Diagnosis (1) Depression with suicidal ideation Status: Acute Priority: High - Final Diagnosis (DSM 5) Condition upon Discharge: STABLE DSM 5: Severe bipolar II depressed without psychotic features PTSD Chronic Disposition: HOME/ ROUTINE Follow-up Treatment Plan: Education: Pt was educated and counseled about the risks and benefits of taking and not taking medications. Pt was educated and counseled about the risks of drinking and abusing drugs. Pt was educated and counseled to go to the ER or call 911 if pt develop suicidal ideation or homicidal ideation, worsening of symptoms or severe side effects of the meds. Prescriptions/Medication Reconciliation: Benztropine [Cogentin] 1 mg PO BID 30 Days #14 tab Gabapentin [Neurontin] 400 mg PO TID #90 cap Mirtazapine [Remeron] 45 mg PO HS #30 tab QUEtiapine [Seroquel] 100 mg PO BID #60 tab QUEtiapine [SEROquel] 200 mg PO HS #30 tab traZODone [Desyrel] 100 mg PO HS #30 tab - Smoking Cessation Smoking Cessation Medication prescribed: No - Antipsychotic Medications Pt discharged on 2 or more routine antipsychotic medications: No
[2017-07-01] MEDS ORDERED: Pneumococcal 23-Valent Vaccine IM ONE (10:30)
[2017-07-01 11:26] LABS: BASO % 0.3 % (0.0-2.0); EOS # 0.2 K/uL (0.0-0.7); HEMATOCRIT 39.7 % (35.0-51.0); LYMPH # 2.6 K/uL (1.0-4.3); LYMPH % 24.7 % (20.0-40.0); MEAN CELL VOLUME 79.6 fL (80.0-94.0); MEAN CORPUSCULAR HGB CONC 32.7 g/dL (33.0-37.0); MEAN PLATELET VOLUME 8.6 fL (7.2-11.7); MONO # 0.8 K/uL (0.0-0.8); MONO % 7.8 % (0.0-10.0); RED CELL DISTRIBUTION WIDTH 15.7 % (11.5-14.5); WHITE BLOOD COUNT 10.5 K/uL (4.8-10.8)
[2017-07-01 11:30] VITALS: BP 131/71; PULSE 112; TEMP 97.5; O2SAT 99
[2017-07-01 11:40] LABS: ALKALINE PHOSPHATASE 67 U/L (38-126); ALT/SGPT 43 U/L (21-72); AST/SGOT 26 U/L (17-59); BILIRUBIN,TOTAL 0.4 mg/dL (0.2-1.3); BLOOD UREA NITROGEN 43 mg/dL (9-20); CALCIUM 8.6 mg/dl (8.6-10.4); CARBON DIOXIDE 28 mmol/L (22-30); CHLORIDE 99 mmol/L (98-107); GFR AFRICAN-AMERICAN > 60; GLUCOSE,RANDOM 211 mg/dL (75-110); MAGNESIUM 1.1 mg/dL (1.6-2.3); POTASSIUM 5.1 mmol/L (3.6-5.2); SODIUM 134 mmol/L (132-148); TOTAL PROTEIN 8.3 g/dL (6.3-8.3)
[2017-07-01 11:43] LABS: ALB/GLOB RATIO 0.9 (1.0-2.1)
== END 2017-07-01 11:40 | disposition home or self-care (01) | DRG 430 ==
LOC: C.ER 02:40 → EDBD 02:40 → C.5E 02:59
DX: F31.81 Bipolar II disorder (principal); I47.2 Ventricular tachycardia; E10.40 Type 1 diabetes mellitus with diabetic neuropathy, unspecified; R45.851 Suicidal ideations; E66.01 Morbid (severe) obesity due to excess calories; E78.5 Hyperlipidemia, unspecified; F41.1 Generalized anxiety disorder; F43.12 Post-traumatic stress disorder, chronic; I10 Essential (primary) hypertension; I25.10 Atherosclerotic heart disease of native coronary artery without angina pectoris; K21.9 Gastro-esophageal reflux disease without esophagitis; N35.9 Urethral stricture, unspecified; Z79.82 Long term (current) use of aspirin; Z79.899 Other long term (current) drug therapy; Z87.891 Personal history of nicotine dependence; Z95.5 Presence of coronary angioplasty implant and graft; Z79.84 Long term (current) use of oral hypoglycemic drugs